=== PATIENT | female | born 1940 | race Caucasian/White ===

== ENCOUNTER → 2017-01-11 | Day surgery (SDC) | payer MEDICARE ==
[~2017-01-11] VITALS: Ht 157.5 cm; Wt 91.0 kg
[~2017-01-11] MED LIST: AMLO10TA2 PO; ASAC800T PO; ASPI1TAB69 PO; ATOR20TA15 PO; CLON0.5T PO; CYCLOPENTOLATE HCL 1% OPHT SOLN 2 ML BTL ONE; DESO0.0560 TOPICAL; DULO1CAP3 PO; FIBE625T10 PO; FLURBIPROFEN 0.03% OPHT SOLN 2.5 ML BTL ONE; GABA300C5 PO; LAMO25TA PO; LIDOCAINE HCL 1% 30 ML VIAL ONE; LIDOCAINE HCL 2% JELLY 5 ML SYRINGE ONE; MULTTAB67 PO; PHENYLEPHRINE HCL 10% OPTH SOLN 5 ML BTL ONE; PROPARACAINE HCL 0.5% OPHT SOLN 15 ML BTL ONE; SODIUM CHLORID 0.9% 500 ML INJ 500 ML ONE; TOBRAMYCIN/DEXAMETHASONE OPTH OINT 3.5 GM TUBE ONE; TROPICAMIDE 1% OPHT SOLN 15 ML BTL ONE; UMEC1INH INH; VENTAER INH; ZYRT10CA PO
[2017-01-11 06:35] VITALS: BP 164/88; PULSE 63; RESP 16; TEMP 97.9; O2SAT 95
[2017-01-11 08:23] VITALS: TEMP 98.5
[2017-01-11 08:40] VITALS: BP 139/74; PULSE 71; RESP 14; O2SAT 98
--- NOTE | 2017-01-13 08:47 | MP ---
cc: TANNER STEVENS M.D. [facility] #: [id number] DATE: 01/11/2017 PREOPERATIVE DIAGNOSIS: Visually significant cataract right eye. POSTOPERATIVE DIAGNOSIS: Visually significant cataract right eye. OPERATION: Phacoemulsification with posterior chamber lens implantation, right eye. SURGEON: Tanner Stevens MD ANESTHESIA: Topical with MAC. COMPLICATIONS: None. PROCEDURE: After informed consent was obtained, the patient was brought into the operative suite and placed on appropriate monitors by the Anesthesia Service. The patient had been given dilating drops and topical lidocaine gel in the holding area. The patient's operative eye was then prepped and draped in the usual sterile fashion. A wire lid speculum was placed. Further 2% lidocaine was then dropped on the cornea prior to beginning the procedure. A paracentesis incision was made in the peripheral cornea with a 1 mm tsering keratome. The anterior chamber was filled with viscoelastic. The anterior chamber was then entered through a stepped, clear corneal incision using a sharp 3 mm tsering keratome. A circular tear capsulorrhexis was then made with a bent needle cystitome. Following hydrodissection of the lens nucleus with balance saline, phacoemulsification of the nucleus was performed using a modified chopping technique. The remaining cortex was removed with irrigation/aspiration. The prior two procedures were both performed using the handpieces of the [employer] phaco unit. The capsular bag was then filled with viscoelastic. The intraocular lens was then injected into the capsular bag and positioned. The type of intraocular lens and its power can be found elsewhere in this chart. The remaining viscoelastic was then removed from the anterior chamber with the IA handpiece. The anterior chamber was reformed with balanced saline. The wound was then closed securely with stromal hydration. It was found to be watertight to an intraocular pressure of at least 30 mmHg by palpation. A small amount of balanced salt solution was then removed through the paracentesis site and the intraocular pressure at the end of the case was approximately 20 by palpation. All drapes were then removed. TobraDex ointment was then placed in the eye, which was closed beneath a semi-pressure patch dressing. The patient tolerated this procedure well and left the operating room awake and alert. The patient is to follow-up in my office in the morning. ADDENDUM: After the clear corneal incisions were sealed water-tight, a 6-mm limbal relaxing incision was made with a 600 micron tsering blade, centered around the 180 degree meridian. MD MORIAH Fraser/KRISTA /9:20 AM /8:38 AM
== END | disposition home or self-care (01) ==
LOC: PHSDC 06:08
PROVIDERS: ATTEND Optometrist Occupational Vision
DX: H25.11 Age-related nuclear cataract, right eye (principal); I10 Essential (primary) hypertension
CPT/HCPCS: 00142; 66984; J7040; V2632

== ENCOUNTER → 2017-02-25 | Day surgery (SDC) | payer MEDICARE ==
[~2017-02-25] VITALS: Ht 157.5 cm; Wt 91.0 kg
[~2017-02-25] MED LIST changes: +ACETYLCHOLINE CHL OPHT SOLN 1:100 2 ML VIAL ONE; -GABA300C5 PO; -LIDOCAINE HCL 1% 30 ML VIAL ONE; -TOBRAMYCIN/DEXAMETHASONE OPTH OINT 3.5 GM TUBE ONE
[2017-02-25 06:36] VITALS: BP 162/75; PULSE 64; RESP 16; TEMP 97.6; O2SAT 97
[2017-02-25] MEDS: TOBRAMYCIN/DEXAMETHASONE OPTH OINT 3.5 GM TUBE ONE ×2 (07:16→08:09)
[2017-02-25] MEDS: LIDOCAINE HCL 1% PF 30 ML VIAL ONE ×2 (07:16→07:58)
[2017-02-25 08:16] VITALS: TEMP 98.1
[2017-02-25 08:35] VITALS: BP 134/68; PULSE 61; RESP 14; O2SAT 98
--- NOTE | 2017-02-26 12:29 | MP ---
cc: TANNER STEVENS M.D. [facility] #[id number] DATE OF SURGERY 02/25/2017 PREOPERATIVE DIAGNOSIS Visually significant cataract left eye. POSTOPERATIVE DIAGNOSIS Visually significant cataract left eye. OPERATION Phacoemulsification with posterior chamber lens implantation, left eye. SURGEON Tanner Stevens MD ANESTHESIA Topical with MAC COMPLICATIONS None PROCEDURE After informed consent was obtained, the patient was brought into the operative suite and placed on appropriate monitors by the Anesthesia Service. The patient had been given dilating drops and topical lidocaine gel in the holding area. The patient's operative eye was then prepped and draped in the usual sterile fashion. A wire lid speculum was placed. Further 2% lidocaine was then dropped on the cornea prior to beginning the procedure. A paracentesis incision was made in the peripheral cornea with a 1 mm tsering keratome. The anterior chamber was filled with viscoelastic. The anterior chamber was then entered through a stepped, clear corneal incision using a sharp 3 mm tsering keratome. A circular tear capsulorrhexis was then made with a bent needle cystitome. Following hydrodissection of the lens nucleus with balance saline, phacoemulsification of the nucleus was performed using a modified chopping technique. The remaining cortex was removed with irrigation/aspiration. The prior two procedures were both performed using the handpieces of the [employer] phaco unit. The capsular bag was then filled with viscoelastic. The intraocular lens was then injected into the capsular bag and positioned. The type of intraocular lens and its power can be found elsewhere in this chart. The remaining viscoelastic was then removed from the anterior chamber with the IA handpiece. The anterior chamber was reformed with balanced saline. The wound was then closed securely with stromal hydration. It was found to be watertight to an intraocular pressure of at least 30 mmHg by palpation. A small amount of balanced salt solution was then removed through the paracentesis site and the intraocular pressure at the end of the case was approximately 20 by palpation. All drapes were then removed. TobraDex ointment was then placed in the eye, which was closed beneath a semi-pressure patch dressing. The patient tolerated this procedure well and left the operating room awake and alert. The patient is to follow-up in my office in the morning. MD MORIAH Fraser/JUAN /9:58 AM /12:19 PM
== END | disposition home or self-care (01) ==
LOC: PHSDC 06:18
PROVIDERS: ATTEND Optometrist Occupational Vision
DX: H25.12 Age-related nuclear cataract, left eye (principal)
CPT/HCPCS: 00142; 66984; J7040; V2632

== ENCOUNTER 2017-06-29 22:42 | Emergency (ER) | payer MEDICARE ==
[~2017-06-29] VITALS: Ht 157.5 cm; Wt 91.0 kg
[~2017-06-29 22:42] MED LIST changes: -ACETYLCHOLINE CHL OPHT SOLN 1:100 2 ML VIAL ONE; -CYCLOPENTOLATE HCL 1% OPHT SOLN 2 ML BTL ONE; -FLURBIPROFEN 0.03% OPHT SOLN 2.5 ML BTL ONE; -LIDOCAINE HCL 2% JELLY 5 ML SYRINGE ONE; -PHENYLEPHRINE HCL 10% OPTH SOLN 5 ML BTL ONE; -PROPARACAINE HCL 0.5% OPHT SOLN 15 ML BTL ONE; -SODIUM CHLORID 0.9% 500 ML INJ 500 ML ONE; -TROPICAMIDE 1% OPHT SOLN 15 ML BTL ONE
[2017-06-29 22:45] VITALS: BP 175/77; PULSE 90; RESP 24; TEMP 99.4; O2SAT 95
[2017-06-29 23:38] VITALS: BP 146/67; PULSE 73; O2SAT 94
--- NOTE | 2017-06-29 23:43 | RADRPT ---
EXAM DATE/TIME: 06/29/2017 23:04 [place] COMPARISON: No previous studies available for comparison. INDICATIONS : Cough and shortness of breath. MEDICAL HISTORY : Asthma SURGICAL HISTORY : None. ENCOUNTER: Initial ACUITY: 4 - 6 days PAIN SCORE: 5/10 LOCATION: Bilateral chest FINDINGS: A single view of the chest demonstrates the lungs to be symmetrically aerated without evidence of mas s, infiltrate or effusion. The cardiomediastinal contours are unremarkable. Osseous structures are intact. CONCLUSION: No acute disease. Left shoulder joint replacement. Mild scoliosis. Bebeto Ulloa MD on June 29, 2017 at 23:40 Board Certified Radiologist. This report was verified electronically.
[2017-06-29] MEDS ORDERED: CETI10 PO (23:45)
[2017-06-29] MEDS ORDERED: ASPI81TA81 PO (23:45)
[2017-06-30] MEDS ORDERED: SODIUM CHLORIDE 0.9% FLUSH 10 ML FLUSH IVF PRN (00:15)
--- NOTE | 2017-06-30 00:43 | PD ---
HPI Chief Complaint: Respiratory Distress Time Seen by Provider: 23:59 Travel History International Travel<30 days: No Contact w/Intl Traveler<30days: No Traveled to known affect area: No History of Present Illness HPI The patient is a 76 year old female who presents to the [facility] emergency department with a history of cough and congestion that began a few days ago. Yesterday, she began to have increased SOB. She has had a cough productive of yellow sputum. The patient reports having a history of asthma. She last used her rescue inhaler at 5 PM this evening. She reports that she is nearly out of her rescue inhaler. On review of systems otherwise, the patient denies any recent fevers, neck pain, chest pain, abdominal pain, vomiting, diarrhea, urinary symptoms, or neurologic symptoms. [facility] Past Medical History Narrative Medical The patient's past medical history is significant for asthma, trigeminal neuralgia, hypertension, hyperlipidemia, hypothyroidism, arthritis Arthritis: Yes Asthma: Yes Cancer: No Cardiovascular Problems: Yes ( AORTA) High Cholesterol: Yes Diabetes: No Endocrine: Yes Genitourinary: No Hepatitis: No Hiatal Hernia: No Hypertension: Yes Immune Disorder: No Medical other: Yes (HX ANEMIA) Musculoskeletal: Yes (ARTHRITIS) Neurologic: Yes (TRIGEMINAL NEURALGA) Psychiatric: Yes (DEPRESSION, ANXIETY) Reproductive: No Respiratory: Yes (ASTHMA; COPD) Migraines: Yes Thyroid Disease: Yes Triglycerides - High: Yes Tetanus Vaccination: > 5 Years Influenza Vaccination: Yes Past Surgical History Narrative Surgical Reviewed as obtained from the nursing staff. Abdominal Surgery: No AICD: No Cardiac Surgery: No Ear Surgery: No Endocrine Surgery: No Eye Surgery: No Genitourinary Surgery: No Gynecologic Surgery: Yes (HYSTERECTOMY) Hysterectomy: Yes Joint Replacement: Yes (RIGHT HIP REPLACEMENT, LEFT SHOULDER ) Oral Surgery: No Pacemaker: No Thoracic Surgery: No Other Surgery: Yes Social History Alcohol Use: Yes (RARE) Tobacco Use: No (30 years ago quit) Substance Use: No Allergies-Medications (Allergen,Severity, Reaction): Coded Allergies: carbamazepine (Unverified Allergy, Severe, CONFUSED, DISORIENTED, 06/29/17) kiwi (Unverified Allergy, Severe, ANAPHYLAXIS, 06/29/17) penicillin G (Unverified Allergy, Severe, ITCH, 06/29/17) amoxicillin (Unverified Allergy, Intermediate, Itching, 06/29/17) oxcarbazepine (Unverified Allergy, Intermediate, DIFFICULTY SEEING, NAUSEA , EXTREME DIZZINESS, 06/29/17) Reported Meds & Prescriptions Reported Meds & Active Scripts Active Medrol Dosepak (Methylprednisolone) 4 Mg Dspk 4 Mg PO DIRECTED Per Pharmacist direction Levaquin (Levofloxacin) 500 Mg Tablet 500 Mg PO DAILY Ventolin Hfa 18 GM Inh (Albuterol Sulfate) 90 Mcg/Act Aer 2 Puff INH Q4H TO 6 HOURS PRN Reported Cetirizine (Cetirizine HCl) 10 Mg Tab 10 Mg PO DAILY Aspir-81 (Aspirin) 81 Mg Tabdr 81 Mg PO DAILY Multiple Vitamin 1 Tab 1 Tab PO DAILY Fiber (Calcium Polycarbophil) 625 Mg Tab 625 Mg PO BID PRN Lamotrigine 25 Mg Tab 25 Mg PO BID Incruse Ellipta Inh (Umeclidinium [place] Inh) 0.0625 Mg/Act Inh 62.5 Mcg INH DAILY Duloxetine DR (Duloxetine HCl) 60 Mg Capdr 60 Mg PO DAILY Desonide Topical (Desonide) 0.05% Cream 1 Applic TOPICAL BID Clonazepam 0.5 Mg Tab 0.5 Mg PO DAILY Atorvastatin (Atorvastatin Calcium) 20 Mg Tab 20 Mg PO HS Asacol HD (Mesalamine) 800 Mg Tab 1,600 Mg PO DAILY Swallow whole. Take on an empty stomach. Amlodipine (Amlodipine Besylate) 10 Mg Tab 10 Mg PO DAILY Review of Systems Except as stated in HPI: all other systems reviewed are Neg General / Constitutional: No: Fever Eyes: No: Visual changes HENT: Positive: Rhinorrhea, Congestion, No: Headaches Cardiovascular: Positive: Dyspnea on exertion, No: Chest Pain or Discomfort Respiratory: Positive: Cough, No: Shortness of Breath Gastrointestinal: No: Abdominal Pain Genitourinary: No: Dysuria Musculoskeletal: No: Pain Skin: No Rash Neurologic: No: Weakness Psychiatric: No: Depression Endocrine: No: Polydipsia Hematologic/Lymphatic: No: Easy Bruising Physical Exam Narrative General: The patient is a well-developed well-nourished female in no acute distress Head and Neck exam: Head is normocephalic atraumatic. Eyes: EOMI, pupils are equal round and reactive to light. Nose: Midline septum with pink mucous membranes Mouth: Dentition unremarkable. Moist mucus membranes. Posterior oropharynx is not erythematous. No tonsillar hypertrophy. Uvula midline. Airway patent. Neck: No palpable lymphadenopathy. No nuchal rigidity. No thyromegaly. Cardiovascular: Regular rate and rhythm without murmurs, gallops, or rubs. Lungs: Soft expiratory wheezes audible throughout bilateral lung tay, no rhonchi or crackles. No accessory muscle use. No paroxysmal abdominal breathing. No tripoding. Abdomen: Soft, without tenderness to palpation in all 4 quadrants of the abdomen. No guarding, rebound, or rigidity. Normal bowel sounds are audible. No tenderness on palpation of McBurney's point. Extremities: No clubbing, cyanosis, or edema. 2+ pulses in all 4 extremities. No calf tenderness on palpation. Back: No spinous process tenderness to palpation. No costovertebral angle tenderness to palpation. Neurologic Exam: Grossly nonfocal. Skin Exam: No rash noted. Intact skin that is warm and dry. Data Data Last Documented VS Vital Signs Date Time Temp Pulse Resp B/P (MAP) Pulse Ox O2 Delivery O2 Flow Rate FiO2 06/30/17 05:44 68 20 154/74 (100) 95 06/30/17 02:06 Room Air 06/29/17 22:45 99.4 Orders Orders Chest, Single Ap (06/29/17 ) Complete Blood Count With Diff (06/30/17 00:10) Comprehensive Metabolic Panel (06/30/17 00:10) B-Type Natriuretic Peptide (06/30/17 00:10) Act Partial Throm Time (Ptt) (06/30/17 00:10) Prothrombin Time / Inr (Pt) (06/30/17 00:10) Magnesium (Mg) (06/30/17 00:10) Ckmb (Isoenzyme) Profile (06/30/17 00:10) Troponin I (06/30/17 00:10) Blood Culture (06/30/17 00:10) Iv Access Insert/Monitor (06/30/17 00:10) Electrocardiogram (06/30/17 00:10) Ecg Monitoring (06/30/17 00:10) Oximetry (06/30/17 00:10) Oxygen Administration (06/30/17 00:10) Sodium Chloride 0.9% Flush (Ns Flush) (06/30/17 00:15) Lactic Acid Sepsis Protocol (06/30/17 00:10) Methylprednisolone So Succ Inj (Solumedr (06/30/17 01:00) Albuterol-Ipratropium Neb (Duoneb Neb) (06/30/17 01:00) Doxycycline (Vibramycin) (06/30/17 01:00) CKMB (06/30/17 00:18) CKMB% (06/30/17 00:18) Labs Laboratory Tests Test 06/30/17 00:18 06/30/17 02:23 Blood Urea Nitrogen 14 MG/DL Creatinine 0.96 MG/DL Random Glucose 108 MG/DL Total Protein 7.4 GM/DL Albumin 3.9 GM/DL Calcium Level 8.3 MG/DL Magnesium Level 2.3 MG/DL Alkaline Phosphatase 122 U/L Aspartate Amino Transf (AST/SGOT) 46 U/L Alanine Aminotransferase (ALT/SGPT) 30 U/L Total Bilirubin 0.5 MG/DL Sodium Level 140 MEQ/L Potassium Level 4.5 MEQ/L Chloride Level 109 MEQ/L Carbon Dioxide Level 23.3 MEQ/L Anion Gap 8 MEQ/L Estimat Glomerular Filtration Rate 57 ML/MIN Lactic Acid Level 0.7 mmol/L Total Creatine Kinase 331 U/L Creatine Kinase MB 3.6 NG/ML Creatine Kinase MB % 1.1 % Troponin I LESS THAN 0.02 NG/ML B-Type Natriuretic Peptide 4 PG/ML White Blood Count 6.8 TH/MM3 Red Blood Count 4.84 MIL/MM3 Hemoglobin 14.1 GM/DL Hematocrit 42.8 % Mean Corpuscular Volume 88.5 FL Mean Corpuscular Hemoglobin 29.1 PG Mean Corpuscular Hemoglobin Concent 32.9 % Red Cell Distribution Width 13.8 % Platelet Count 153 TH/MM3 Mean Platelet Volume 7.9 FL Neutrophils (%) (Auto) 48.6 % Lymphocytes (%) (Auto) 39.4 % Monocytes (%) (Auto) 8.1 % Eosinophils (%) (Auto) 2.5 % Basophils (%) (Auto) 1.4 % Neutrophils # (Auto) 3.3 TH/MM3 Lymphocytes # (Auto) 2.7 TH/MM3 Monocytes # (Auto) 0.6 TH/MM3 Eosinophils # (Auto) 0.2 TH/MM3 Basophils # (Auto) 0.1 TH/MM3 CBC Comment DIFF FINAL Differential Comment Prothrombin Time 10.7 SEC Prothromb Time International Ratio 1.0 RATIO Activated Partial Thromboplast Time 30.1 SEC [facility] Medical Decision Making Medical Screen Exam Complete: Yes Emergency Medical Condition: Yes Medical Record Reviewed: Yes Differential Diagnosis Asthma exacerbation, versus new-onset congestive heart failure, versus pneumonia Narrative Course During the course of the patients emergency department visit, the patients history, examination, and differential diagnosis were reviewed with the patient. The patient had IV access obtained and blood work sent for analysis. The patient's was on a cardiac rehabilitation specialist with oximetry and blood pressure monitoring. An ECG was done on arrival. The patient's ECG shows a sinus rhythm heart rate of 64, no acute ST segment elevation or depression. The patient was initially provided doxycycline 100 mg by mouth 1, DuoNeb nebs 2, Solu-Medrol 125 mg IV.. The patients laboratory studies were reviewed and remarkable for a CBC that shows a monocytosis at 8.1 with a normal white count at 6.8, CMP is remarkable for chloride of 109, glucose 108, calcium 8.3, AST 46, alkaline phosphatase 122 , CPK 331 with 1.1 MB percent, troponin I less than 0.02, BNP 4, lactic acid is 0.7, PT PTT within normal limits. Radiology studies were reviewed and remarkable for a chest x-ray showed no acute disease, left shoulder joint replacement, mild scoliosis. The patient reported feeling improved. The patient will be discharged home with a prescription for Levaquin due to an interaction between her doxycycline and another medication, and a Medrol Dosepak taper, as well as a refill of rescue inhaler. The patient is resting comfortably and feels better, is alert and in no distress. The patients results and examination findings were discussed with the patient. The repeat examination is unremarkable and benign. The history, exam, diagnostic testing, and current condition do not suggest any significant pathology to warrant further testing, continued ED treatment, admission, or surgical evaluation at this point. The vital signs have been stable. The patient does not have uncontrollable pain, intractable vomiting, or other significant symptoms. The patient's condition is stable and appropriate for discharge. The patient will pursue further outpatient evaluation with a primary care physician or other designated or consulting physician as indicated in the discharge instructions. The patient expressed understanding and was agreeable with this plan. Diagnosis Primary Impression: COPD exacerbation Additional Impression: Bronchitis Referrals: Primary Care Physician 2 days Patient Instructions: Acute Bronchitis (ED), COPD (Chronic Obstructive Pulmonary Disease) (ED), General Instructions Med/Other Pt SpecificInfo: Prescription(s) given Scripts Methylprednisolone Dosepak (Medrol Dosepak) 4 Mg Dspk 4 MG PO DIRECTED, #1 DSPK 0 Refills Per Pharmacist direction Prov: Michaelle Ball MD 06/30/17 Levofloxacin (Levaquin) 500 Mg Tablet 500 MG PO DAILY for Infection, #7 TAB 0 Refills Prov: Michaelle Ball MD 06/30/17 Albuterol 18 GM Inh (Ventolin Hfa 18 GM Inh) 90 Mcg/Act Aer 2 PUFF INH Q4H to 6 hours Y for SHORTNESS OF BREATH, #1 INHALER 0 Refills Prov: Michaelle Ball MD 06/30/17 Disposition: 01 DISCHARGE HOME Condition: Stable Michaelle Ball MD Jun 30, 2017 00:43
[2017-06-30] MEDS ORDERED: methylPREDNISolone SOD SUCC 125 MG/2 ML VIAL IVP ONE (01:00)
[2017-06-30] MEDS ORDERED: DOXYCYCLINE HYCLATE 100 MG CAP PO ONE (01:00)
[2017-06-30 01:09] LABS: ALKALINE PHOSPHATASE 122 U/L (45-117); ALT (GPT) 30 U/L (10-53); ANION GAP 8 MEQ/L (5-15); AST (GOT) 46 U/L (15-37); BICARBONATE 23.3 MEQ/L (21.0-32.0); BLOOD UREA NITROGEN 14 MG/DL (7-18); CHLORIDE 109 MEQ/L (98-107); CREATINE KINASE 331 U/L (26-192); GLOMERULAR FILTRATION RATE 57 ML/MIN (>89); MAGNESIUM 2.3 MG/DL (1.5-2.5); POTASSIUM 4.5 MEQ/L (3.5-5.1); SODIUM (NA) 140 MEQ/L (136-145); TOTAL BILIRUBIN ADULT 0.5 MG/DL (0.2-1.0)
[2017-06-30 01:22] LABS: CKMB 3.6 NG/ML (0.5-3.6)
[2017-06-30] MEDS: RESP: ALBUTEROL 2.5 MG/IPRATROPIUM 0.5 MG NEB (SCH) INH (01:28)
[2017-06-30 02:06] VITALS: BP 154/70; PULSE 69; O2SAT 95
[2017-06-30 02:43] LABS: AUTOMATED NEUTROPHIL # 3.3 TH/MM3 (1.8-7.7); BASOPHIL # 0.1 TH/MM3 (0-0.2); BASOPHIL % 1.4 % (0.0-2.0); EOSINOPHIL # 0.2 TH/MM3 (0-0.4); EOSINOPHIL % 2.5 % (0.0-4.0); HEMATOCRIT 42.8 % (35.0-46.0); HEMO FLAGS DIFF FINAL; LYMPH % 39.4 % (9.0-44.0); LYMPHOCYTE # 2.7 TH/MM3 (1.0-4.8); MEAN CELL VOLUME 88.5 FL (80.0-100.0); MEAN CORPUSCULAR HEMOGLOBIN 29.1 PG (27.0-34.0); MEAN CORPUSCULAR HGB CONC 32.9 % (32.0-36.0); MONO % 8.1 % (0.0-8.0); NEUT % 48.6 % (16.0-70.0); PLATELET COUNT 153 TH/MM3 (150-450); RED BLOOD COUNT 4.84 MIL/MM3 (4.00-5.30); RED CELL DISTRIBUTION WIDTH 13.8 % (11.6-17.2); WHITE BLOOD COUNT 6.8 TH/MM3 (4.0-11.0)
[2017-06-30 02:53] LABS: APTT (PATIENT) 30.1 SEC (24.3-30.1); PROTHROMBIN TIME - PATIENT 10.7 SEC (9.8-11.6)
[2017-06-30 05:44] VITALS: BP 154/74
[2017-06-30] MEDS ORDERED: LEVA500T20 PO (05:51)
[2017-06-30] MEDS ORDERED: VENTAER INH (05:51)
[2017-06-30] MEDS ORDERED: MEDR4PAK PO (05:51)
--- NOTE | 2017-06-30 21:24 | EKG ---
Date Performed: 06/30/2017 Time Performed: 00:36:22 PTAGE: 76 years EKG: Sinus rhythm NORMAL ECG PREVIOUS TRACING : 03/27/2014 08.57 Compared to prior tracing no significant change DOCTOR: Stephane Urbano Interpretating Date/Time 06/30/2017 21:24:07
== END 2017-06-30 05:59 | disposition home or self-care (01) ==
LOC: NEPC 22:42
DX: J44.1 Chronic obstructive pulmonary disease with (acute) exacerbation (principal); J45.909 Unspecified asthma, uncomplicated; I10 Essential (primary) hypertension; M19.90 Unspecified osteoarthritis, unspecified site; R07.9 Chest pain, unspecified
CPT/HCPCS: 71010; 80053; 82550; 82552; 83605; 83735; 83880; 84484; 85025; 85610; 85730; 87040; 93005; 94640; 94664; 96374; 99285; J2930